=== PATIENT | male | born 1980 | race African-American/Black ===

== ENCOUNTER 2017-10-04 18:25 | Emergency (ER) | payer OTHER ==
[~2017-10-04] VITALS: Ht 172.7 cm; Wt 73.9 kg
[~2017-10-04 18:25] MED LIST: AMOXICILLIN 50500 MG PO; AMOXICILLIN875 MG PO; ERYTHROMYCIN E3.5 G1 OPHTHALMIC; IBUPROFEN 800800 M1 PO; NAPROSYN500 MG PO; NORCO 5-325 TA1 EACH PO; PENICILLIN VK250 MG PO; PENICILLIN VK500 M1 PO
[2017-10-04 20:16] LABS: URINE BILIRUBIN NEGATIVE (Negative); URINE BLOOD NEGATIVE (Negative); URINE COLOR YELLOW; URINE GLUCOSE-RANDOM* NEGATIVE (Negative); URINE KETONES NEGATIVE (Negative); URINE LEUKOCYTES-REFLEX NEGATIVE (Negative); URINE PROTEIN (DIPSTICK) NEGATIVE (Negative); URINE SPECIFIC GRAVITY 1.015 (1.005-1.035); URINE UROBILINOGEN 0.2 E.U./dl (0.2-1.0)
[2017-10-04] MEDS ORDERED: FLEXERIL PO (20:23)
[2017-10-04] MEDS ORDERED: FLAGYL500 MG PO (20:23)
[2017-10-04 20:34] VITALS: BP 138/86
== END 2017-10-04 20:35 | disposition home or self-care (01) ==
LOC: ER 18:25
PROVIDERS: Physician Assistant
DX: S39.012A Strain of muscle, fascia and tendon of lower back, initial encounter (principal); Z20.2 Contact with and (suspected) exposure to infections with a predominantly sexual mode of transmission; X58.XXXA Exposure to other specified factors, initial encounter; Y93.89 Activity, other specified; Y92.89 Other specified places as the place of occurrence of the external cause; Y99.8 Other external cause status

== ENCOUNTER 2018-01-14 18:33 | Emergency (ER) | payer OTHER ==
[~2018-01-14] VITALS: Ht 172.7 cm; Wt 75.8 kg
[~2018-01-14 18:33] MED LIST changes: +FLAGYL500 MG PO; +FLEXERIL PO
== END 2018-01-14 19:40 | disposition home or self-care (01) ==
LOC: ER 18:33
DX: B07.0 Plantar wart (principal); F17.200 Nicotine dependence, unspecified, uncomplicated

== ENCOUNTER 2018-12-16 16:31 | Emergency (ER) | payer OTHER ==
[~2018-12-16] VITALS: Ht 172.7 cm; Wt 75.8 kg
[2018-12-16] MEDS ORDERED: TOBRADEX EYE DRO5 ML OPHTHALMIC (17:20)
[2018-12-16 18:25] VITALS: BP 141/76
== END 2018-12-16 18:26 | disposition home or self-care (01) ==
LOC: ER 16:31
DX: H10.212 Acute toxic conjunctivitis, left eye (principal); F17.210 Nicotine dependence, cigarettes, uncomplicated

== ENCOUNTER 2019-02-12 09:44 | Emergency (ER) | payer OTHER ==
[~2019-02-12] VITALS: Ht 172.7 cm; Wt 74.8 kg
[~2019-02-12 09:44] MED LIST changes: +TOBRADEX EYE DRO5 ML OPHTHALMIC
[2019-02-12 09:45] VITALS: BP 147/100
[2019-02-12] MEDS ORDERED: ULTRAM 50MG TAB50 MG PO (10:16)
[2019-02-12] MEDS ORDERED: NAPROSYN500 MG PO (10:16)
== END 2019-02-12 10:30 | disposition home or self-care (01) ==
LOC: ER 09:44
DX: K01.1 Impacted teeth (principal); F17.210 Nicotine dependence, cigarettes, uncomplicated

== ENCOUNTER 2019-07-19 06:30 | Emergency (ER) | payer OTHER ==
[~2019-07-19] VITALS: Ht 172.7 cm; Wt 74.8 kg
[~2019-07-19 06:30] MED LIST changes: +ULTRAM 50MG TAB50 MG PO
[2019-07-19 06:32] VITALS: BP 133/83
== END 2019-07-19 07:08 | disposition home or self-care (01) ==
LOC: ER 06:30
DX: K08.89 Other specified disorders of teeth and supporting structures (principal); F17.210 Nicotine dependence, cigarettes, uncomplicated

== ENCOUNTER 2019-09-27 12:26 | Emergency (ER) | payer OTHER ==
[~2019-09-27] VITALS: Ht 175.3 cm; Wt 72.6 kg
[2019-09-27] MEDS ORDERED: CYCLOBENZAPRINE5 MG PO (14:41)
[2019-09-27] MEDS ORDERED: IBUPROFEN 800800 M1 PO (14:41)
[2019-09-27 14:53] VITALS: BP 123/58
== END 2019-09-27 14:54 | disposition home or self-care (01) ==
LOC: ER 12:26
DX: M54.5 Low back pain (principal); M54.2 Cervicalgia; M54.6 Pain in thoracic spine; F17.210 Nicotine dependence, cigarettes, uncomplicated; W10.9XXA Fall (on) (from) unspecified stairs and steps, initial encounter; Y93.89 Activity, other specified; Y92.89 Other specified places as the place of occurrence of the external cause; Y99.9 Unspecified external cause status

== ENCOUNTER 2019-10-21 12:52 | Emergency (ER) | payer OTHER ==
[~2019-10-21] VITALS: Ht 172.7 cm; Wt 72.6 kg
[~2019-10-21 12:52] MED LIST changes: +CYCLOBENZAPRINE5 MG PO
[2019-10-21 13:44] LABS: BASOPHILS 1.2 % (0.0-2.0); EOSINOPHILS 2.1 % (0.0-3.0); HEMATOCRIT 43.2 % (42.0-52.0); HEMOGLOBIN 14.3 gm/dL (14.0-18.0); LYMPHOCYTES 37.8 % (24.0-44.0); MCH 28.8 pg (26.0-34.0); MCHC 33.1 g/dL (28.0-37.0); MCV 86.9 fL (80.0-100.0); MONOCYTES 7.5 % (1.0-8.0); PLATELET COUNT 295 thou/uL (150-400); POLYS 51.4 % (36.0-66.0); RBC 4.97 mil/uL (4.50-6.00); RDW 14.7 % (10.5-14.5); WBC 5.7 thou/uL (4.0-11.0)
[2019-10-21 13:58] LABS: CALCIUM 9.2 mg/dL (8.5-10.1); CREATININE 0.9 mg/dL (0.7-1.3); POTASSIUM 4.2 mmol/L (3.5-5.1)
[2019-10-21 14:04] LABS: ALBUMIN 3.9 g/dL (3.4-5.0); TOTAL BILIRUBIN 0.3 mg/dL (<0.1-1.0); TOTAL PROTEIN 7.5 g/dL (6.4-8.2)
[2019-10-21] MEDS ORDERED: ZOFRAN ODT4 MG PO (14:57)
[2019-10-21 15:17] VITALS: BP 131/80
== END 2019-10-21 15:13 | disposition home or self-care (01) ==
LOC: ER 12:52
PROVIDERS: Physician Assistant
DX: K52.9 Noninfective gastroenteritis and colitis, unspecified (principal); E86.0 Dehydration; F17.210 Nicotine dependence, cigarettes, uncomplicated

== ENCOUNTER 2020-01-10 10:28 | Emergency (ER) | payer OTHER ==
[~2020-01-10] VITALS: Ht 172.7 cm; Wt 72.6 kg
[2020-01-10 10:28] VITALS: BP 128/71
[~2020-01-10 10:28] MED LIST changes: +ZOFRAN ODT4 MG PO
[2020-01-10] MEDS ORDERED: NORCO 5-325 TA1 EAC1 PO (10:51)
== END 2020-01-10 11:09 | disposition home or self-care (01) ==
LOC: ER 10:28
DX: M54.5 Low back pain (principal); F17.210 Nicotine dependence, cigarettes, uncomplicated; X50.9XXA Other and unspecified overexertion or strenuous movements or postures, initial encounter; Y93.89 Activity, other specified; Y92.89 Other specified places as the place of occurrence of the external cause; Y99.0 Civilian activity done for income or pay

== ENCOUNTER 2020-02-15 14:18 | Emergency (ER) | payer OTHER ==
[~2020-02-15] VITALS: Ht 172.7 cm; Wt 72.6 kg
[~2020-02-15 14:18] MED LIST changes: +NORCO 5-325 TA1 EAC1 PO
[2020-02-15 14:21] VITALS: BP 146/79
[2020-02-15] MEDS ORDERED: MOBIC7.5 MG PO (14:59)
[2020-02-15] MEDS ORDERED: NORFLEX100 MG PO (14:59)
== END 2020-02-15 15:04 | disposition home or self-care (01) ==
LOC: ER 14:18
DX: G89.29 Other chronic pain (principal); M54.5 Low back pain; F17.210 Nicotine dependence, cigarettes, uncomplicated

== ENCOUNTER 2020-05-13 23:23 | Emergency (ER) | payer OTHER ==
[~2020-05-13] VITALS: Ht 172.7 cm; Wt 72.6 kg
[~2020-05-13 23:23] MED LIST changes: +MOBIC7.5 MG PO; +NORFLEX100 MG PO
[2020-05-14] MEDS ORDERED: AUGMENTIN 875-1 EACH PO (00:55)
[2020-05-14 01:12] VITALS: BP 145/78
== END 2020-05-14 01:13 | disposition home or self-care (01) ==
LOC: ER 23:23
DX: S01.511A Laceration without foreign body of lip, initial encounter (principal); G89.29 Other chronic pain; M54.5 Low back pain; F17.210 Nicotine dependence, cigarettes, uncomplicated; Z79.899 Other long term (current) drug therapy; Y04.2XXA Assault by strike against or bumped into by another person, initial encounter; Y93.89 Activity, other specified; Y92.89 Other specified places as the place of occurrence of the external cause; Y99.8 Other external cause status

== ENCOUNTER 2021-10-31 17:02 | Emergency (ER) | payer OTHER ==
[~2021-10-31 17:02] MED LIST changes: +AUGMENTIN 875-1 EACH PO
[2021-10-31 17:21] VITALS: BP 115/76
== END 2021-10-31 18:35 | disposition home or self-care (01) ==
LOC: ER 17:02
DX: U07.1 COVID-19 (principal); F17.210 Nicotine dependence, cigarettes, uncomplicated; Z79.899 Other long term (current) drug therapy